=== PATIENT | male | born 1980 | race Caucasian/White ===

== ENCOUNTER 2023-12-01 22:38 | Emergency (ER) | payer SELFPAY ==
[2023-12-01] MEDS ORDERED: ALBUTEROL 2.5 MG/3 ML NEB SOL ONE (23:37)
[2023-12-01] MEDS ORDERED: GUAIFENESIN/DM 5 ML UCUP ONE (23:38)
[2023-12-01] MEDS ORDERED: PROMETHAZINE 25 MG TABLET ONE (23:38)
[2023-12-01] MEDS ORDERED: IPRATROPIUM BROM 0.5MG/2.5ML ONE (23:38)
[2023-12-02] MEDS ORDERED: AZITHROMYCIN 250 MG TAB ONE (00:16)
[2023-12-02 00:21] LABS: Absolute Basophils 0.1 K/uL (0-0.5); Absolute Eosinophils 0.2 K/uL (0-0.5); Absolute Lymphocytes (CBC) 2.9 K/uL (0.7-4.9); Absolute Neutrophil 9.4 K/uL (1.8-8.0); Basophils % 0.6 % (0-1.3); Eosinophils % 1.3 % (0-4.4); Hemoglobin 14.3 g/dL (13.6-17.9); Lymphocytes % 21.7 % (15.3-44.8); MCH 29.6 pg (27.0-35.0); MCV 87.2 fL (80-100); MPV 8.3 fL (7.6-11.3); Monocytes % 7.1 % (3.3-12.3); Neutrophils % 69.3 % (41.7-73.7); Nucleated Red Blood Cells % 0.1 % (0-0); Platelets 311 thou/uL (152-406); RBC Red Blood Cell Count 4.82 M/uL (4.33-5.43); Red Cell Distribution Width 13.2 % (12.1-15.2)
[2023-12-02 00:31] LABS: ALT/SGPT 33 U/L (16-61); Albumin/Globulin Ratio 1.3 (1.1-1.8); Alkaline Phosphatase 61 U/L (45-117); Anion Gap 7.8 mEq/L (5.0-15.0); BUN Blood Urea Nitrogen 17 mg/dL (7-18); Bicarbonate 29 mEq/L (21-32); Bilirubin Total 0.4 mg/dL (0.2-1.0); Globulin 3.1 g/dL (2.3-3.5); Glomerular Filtration Rate 88 ml/min (=/>90); Glucose Level 114 mg/dL (74-106); Potassium 3.8 mEq/L (3.5-5.1); Protein, Total 7.1 g/dL (6.4-8.2); Sodium Level 139 mEq/L (136-145)
[2023-12-02 00:42] LABS: AST/SGOT < 10 U/L (15-37); Bilirubin Direct < 0.2 mg/dL (0-0.2); Bilirubin Indirect, Calculated 0.2 mg/dL (0.2-0.8)
--- NOTE | 2023-12-02 00:58 | ER ---
Nurse's Notes [facility] Name: Lazaro Kaur Age: 43 yrs Sex: Male : 1980 Arrival Date: 12/01/2023 Time: 22:38 Bed 11 Private MD: Diagnosis: Acute bronchitis, unspecified;Acute upper respiratory infection, unspecified Presentation: 11/30 22:43 Chief complaint: Patient states: I can't catch my breath, I have been coughing since jb4 this afternoon. Coronavirus screen: At this time, the client does not indicate any symptoms associated with coronavirus-19. Ebola Screen: No symptoms or risks identified at this time. Initial Sepsis Screen: Does the patient meet any 2 criteria? No. Patient's initial sepsis screen is negative. Does the patient have a suspected source of infection? No. Patient's initial sepsis screen is negative. Risk Assessment: Do you want to hurt yourself or someone else? Patient reports no desire to harm self or others. Onset of symptoms was December 01, 2023. Transition of care: patient was not received from another setting of care. 22:43 Method Of Arrival: Ambulatory jb4 22:43 Acuity: NEGRITA 3 jb4 Triage Assessment: 22:44 General: Appears in no apparent distress. comfortable, Behavior is calm, cooperative. jb4 Pain: Denies pain. EENT: No signs and/or symptoms were reported regarding the EENT system. Neuro: Level of Consciousness is awake, alert, obeys commands, Oriented to person, place, time, situation. Cardiovascular: Patient's skin is warm and dry. Respiratory: Reports shortness of breath with cough cough that is non-productive, dry, persistent Onset: The symptoms/episode began/occurred gradually, the patient has mild shortness of breath. GI: No signs and/or symptoms were reported involving the gastrointestinal system. : No signs and/or symptoms were reported regarding the genitourinary system. Derm: Skin is intact, Skin is pink, warm \T\ dry. Musculoskeletal: Circulation, motion, and sensation intact. Range of motion: intact in all extremities. Historical: - Allergies: 22:44 Sulfa (Sulfonamide Antibiotics); jb4 - PMHx: 22:44 Sleep apnea; jb4 - PSHx: 22:44 sinus surgery; addnoid removal; kidney stents x3; Tonsillectomy; jb4 - Immunization history:: Adult Immunizations up to date. - Infectious Disease History:: Denies. - Social history:: Smoking status: Patient reports the use of cigarette tobacco products, smokes one pack cigarettes per day. - Family history:: not pertinent. Screenin/08 01:16 [facility] ED Fall Risk Assessment (Adult) History of falling in the last 3 months, jb4 including since admission No falls in past 3 months (0 pts) Confusion or Disorientation No (0 pts) Intoxicated or Sedated No (0 pts) Impaired Gait No (0 pts) Mobility Assist Device Used No (0 pt) Altered Elimination No (0 pt) Score/Fall Risk Level 0 - 2 = Low Risk Oriented to surroundings, Maintained a safe environment. Abuse screen: Denies threats or abuse. Nutritional screening: No deficits noted. Tuberculosis screening: No symptoms or risk factors identified. Assessment: 01:16 Reassessment: Patient appears in no apparent distress at this time. Patient and/or jb4 family updated on plan of care and expected duration. Pain level reassessed. Patient is alert, oriented x 3, equal unlabored respirations, skin warm/dry/pink. Patient states feeling better. Patient states symptoms have improved. Vital Signs: 11/30 22:43 BP 110 / 62; Pulse 76; Resp 16; Temp 97.6(O); Pulse Ox 97% on R/A; Weight 92.99 kg (R); jb4 Height 5 ft. 11 in. (R); 12/01 01:16 BP 117 / 63; Pulse 68; Resp 16; Pulse Ox 98% on R/A; jb4 11/30 22:43 Body Mass Index 28.59 (92.99 kg, 180.34 cm) jb4 Froilan Coma Score: 04:42 Eye Response: spontaneous(4). Motor Response: obeys commands(6). Verbal Response: sp4 oriented(5). Total: 15. ED Course: 11/30 22:39 Patient arrived in ED. im 22:41 Alber Cordova MD is Attending Physician. sp4 22:44 Triage completed. jb4 22:44 Arm band placed on right wrist. jb4 23:36 Chest Pa And Lat (2 Views) XRAY In Process Unspecified. EDMS 23:50 Basic Metabolic Panel Sent. jb4 23:50 CBC with Diff Sent. jb4 23:50 LFT's Sent. jb4 23:50 Influenza Screen (a \T\ B) Sent. jb4 12/01 01:16 Patient has correct armband on for positive identification. Bed in low position. Call jb4 light in reach. Side rails up X 1. Provided Education on: discharge instructions.. 01:16 No provider procedures requiring assistance completed. IV discontinued, intact, jb4 bleeding controlled, No redness/swelling at site. Pressure dressing applied. Administered Medications: 11/30 23:49 Drug: Promethazine PO 25 mg PO once Route: PO; jb4 23:49 Drug: Dextromethorphan-Guaifenesin PO Liquid 10 mg-100 mg/5 mL 10 ml PO once Route: PO; jb4 23:50 Drug: Albuterol Inhalation 2.5 mg Inhalation once Route: Inhalation; jb4 23:50 Drug: Ipratropium Inhalation Aerosol 0.5 mg Inhalation once Route: Inhalation; jb4 23:50 Drug: Dextromethorphan-Guaifenesin PO Liquid 10 mg-100 mg/5 mL 10 ml PO once Route: PO; jb4 12/01 00:26 Drug: AZITHromycin PO 500 mg PO once Route: PO; jb4 Medication: 01:16 VIS not applicable for this client. 4 Outcome: 00:57 Discharge ordered by . sp4 01:16 Discharged to home ambulatory, with family, jb4 01:16 Condition: stable 01:16 Discharge instructions given to patient, Instructed on discharge instructions, follow up and referral plans. medication usage, Demonstrated understanding of instructions, follow-up care, medications, Prescriptions given X 4, 01:18 Patient left the ED. jb4 Signatures: Dispatcher [employer] EDSina Bryan, SHAINA MERRITT jb4 Alber Cordova MD MD sp4 Kinjal Galo
--- NOTE | 2023-12-02 00:58 | EDPHYS ---
Physician Documentation [facility] Name: Lazaro Kaur Age: 43 yrs Sex: Male : 1980 Arrival Date: 12/01/2023 Time: 22:38 Bed 11 Private MD: ED Physician Alber Cordova HPI: 11/30 22:41 This 43 yrs old Male presents to ER via Unassigned with complaints of Cough, sp4 Breathing Difficulty. 12/01 04:42 43-year-old male presents with shortness of breath chest discomfort and breathing sp4 difficulty starting at 7 PM yesterday. Patient states he has been coughing dry cough and feeling unwell overall. Patient denied fever or chills. . Historical: - Allergies: 11/30 22:44 Sulfa (Sulfonamide Antibiotics); jb4 - PMHx: 22:44 Sleep apnea; jb4 - PSHx: 22:44 sinus surgery; addnoid removal; kidney stents x3; Tonsillectomy; jb4 - Immunization history:: Adult Immunizations up to date. - Infectious Disease History:: Denies. - Social history:: Smoking status: Patient reports the use of cigarette tobacco products, smokes one pack cigarettes per day. - Family history:: not pertinent. ROS: 12/01 04:42 Constitutional: Negative for fever, chills, and weight loss, positive for shortness of sp4 breath, positive for cough, positive for chest discomfort associated with cough All other systems are negative, Exam: 04:42 Constitutional: This is a well developed, well nourished patient who is awake, alert, sp4 and in no acute distress. Head/Face: Normocephalic, atraumatic. Eyes: Pupils equal round and reactive to light, extra-ocular motions intact. Lids and lashes normal. Conjunctiva and sclera are not injected. Cornea within normal limits. Periorbital areas with no swelling, redness, or edema. ENT: Nares patent. No nasal discharge, no septal abnormalities noted. Tympanic membranes are normal and external auditory canals are clear. Oropharynx with no redness, swelling, or masses, exudates, or evidence of obstruction, uvula midline. Mucous membranes moist. Neck: Trachea midline, no thyromegaly or masses palpated, and no cervical lymphadenopathy. Supple, full range of motion without nuchal rigidity, or vertebral point tenderness. Chest/axilla: Normal chest wall appearance and motion. Nontender with no deformity. No lesions are appreciated. Cardiovascular: Regular rate and rhythm with a normal S1 and S2. No gallops, murmurs, or rubs. Normal PMI, no JVD. No pulse deficits. Respiratory: Lungs have equal breath sounds bilaterally, clear to auscultation and percussion. No rales, rhonchi or wheezes noted. No increased work of breathing, no retractions or nasal flaring. Abdomen/GI: Soft, with normal bowel sounds. No distension or tympany. No guarding or rebound. No evidence of tenderness throughout. Back: No spinal tenderness. No costovertebral tenderness. Skin: Warm, dry with normal turgor. Normal color with no rashes, no lesions, and no evidence of cellulitis. MS/ Extremity: Pulses equal, no cyanosis. Neurovascular intact. Full, normal range of motion. Neuro: Awake and alert, GCS 15, oriented to person, place, time, and situation. Cranial nerves II-XII grossly intact. Motor strength 5/5 in all extremities. Sensory grossly intact. Psych: Awake, alert, with orientation to person, place and time. Behavior, mood, and affect are within normal limits Vital Signs: 11/30 22:43 BP 110 / 62; Pulse 76; Resp 16; Temp 97.6(O); Pulse Ox 97% on R/A; Weight 92.99 kg (R); jb4 Height 5 ft. 11 in. (R); 12/01 01:16 BP 117 / 63; Pulse 68; Resp 16; Pulse Ox 98% on R/A; jb4 11/30 22:43 Body Mass Index 28.59 (92.99 kg, 180.34 cm) jb4 Kendall Coma Score: 04:42 Eye Response: spontaneous(4). Motor Response: obeys commands(6). Verbal Response: sp4 oriented(5). Total: 15. MDM: 11/30 22:41 Patient medically screened. sp4 12/01 00:55 Data reviewed: vital signs, nurses notes, old medical records, lab test result(s), sp4 radiologic studies, plain films. ED course: Stable for discharge home with Zithromax dextromethorphan, and also other 1 called albuterol. 04:42 Differential Diagnosis: Obstructed Airway Bronchitis Influenza Upper Respiratory sp4 Infection Sinusitis. ED course: EXAM DESCRIPTION: Chest Pa And Lat (2 Views) CLINICAL HISTORY: DYSPNEA COMPARISON: None FINDINGS: Cardiac silhouette is within normal limits. EKG leads project over the chest. There is no focal parenchymal or pleural disease. There is no acute osseous process visualized. IMPRESSION: No evidence of acute cardiopulmonary disease. Electronically signed by: Gianfranco Vargas . 11/30 22:41 Order name: Influenza Screen (a \T\ B); Complete Time: 00:49 sp4 11/30 23:11 Order name: Basic Metabolic Panel; Complete Time: 00:49 sp4 11/30 23:11 Order name: CBC with Diff; Complete Time: 00:49 sp4 11/30 23:11 Order name: LFT's; Complete Time: 00:49 sp4 11/30 23:11 Order name: Chest Pa And Lat (2 Views) XRAY sp4 11/30 23:11 Order name: IV Saline Lock; Complete Time: 23:50 sp4 11/30 23:11 Order name: Labs collected and sent; Complete Time: 23:50 sp4 11/30 23:11 Order name: O2 Per Protocol; Complete Time: 23:50 sp4 11/30 23:11 Order name: O2 Sat Monitoring; Complete Time: 23:50 sp4 Administered Medications: 11/30 23:49 Drug: Promethazine PO 25 mg PO once Route: PO; jb4 23:49 Drug: Dextromethorphan-Guaifenesin PO Liquid 10 mg-100 mg/5 mL 10 ml PO once Route: PO; jb4 23:50 Drug: Albuterol Inhalation 2.5 mg Inhalation once Route: Inhalation; jb4 23:50 Drug: Ipratropium Inhalation Aerosol 0.5 mg Inhalation once Route: Inhalation; jb4 23:50 Drug: Dextromethorphan-Guaifenesin PO Liquid 10 mg-100 mg/5 mL 10 ml PO once Route: PO; jb4 12/01 00:26 Drug: AZITHromycin PO 500 mg PO once Route: PO; jb4 Disposition Summary: 12/02/23 00:57 Discharge Ordered Notes: Location: Home sp4 Problem: new sp4 Symptoms: have improved sp4 Condition: Stable sp4 Diagnosis - Acute bronchitis, unspecified sp4 - Acute upper respiratory infection, unspecified sp4 Followup: sp4 - With: Private Physician - When: 7 - 10 days - Reason: Recheck today's complaints Discharge Instructions: - Discharge Summary Sheet sp4 - Acute Bronchitis, Adult sp4 Forms: - Patient Portal Instructions sp4 Prescriptions: - Ventolin HFA 90 mcg/actuation Inhalation HFA Aerosol Inhaler - inhale 2 puff INHALATION route every 4 hours Dispense 1 Inhaler with Spacer, sp4 Use 2 puffs every 4 hours as needed for cough and dyspnea; 1 unit; Refills: 0, Product Selection Permitted - dextromethorphan-guaifenesin 20-400 mg Oral tablet - take 1 tablet ORAL route every 6 hours PRN cough; 40 tablet; Refills: 0, sp4 Product Selection Permitted - Ibuprofen 800 mg Oral Tablet - take 1 tablet ORAL route every 8 hours As needed take with food; 30 tablet; sp4 Refills: 0, Product Selection Permitted - Zithromax Z-Ranulfo 250 mg Oral Tablet - take 1 tablet ORAL route as directed for 5 days Day 1 - take two (2) tablets sp4 one time. Day 2, 3, 4 , 5 take one (1) tablet once daily.; 6 tablet; Refills: 0, Product Selection Permitted Signatures: Dispatcher [employer] Sina Vigil RN RN jb4 Alber Cordova MD MD sp4
[2023-12-02 01:55] VITALS: BP 117/63; TEMP 97.6; O2SAT 98
--- NOTE | 2023-12-02 12:48 | RAD REPORT ---
EXAM DESCRIPTION: RAD - Chest Pa And Lat (2 Views) - 12/01/2023 11:34 pm CLINICAL HISTORY: DYSPNEA COMPARISON: None FINDINGS: Cardiac silhouette is within normal limits. EKG leads project over the chest. There is no focal parenchymal or pleural disease. There is no acute osseous process visualized. IMPRESSION: No evidence of acute cardiopulmonary disease. Electronically signed by: Gianfranco Vargas MD 12/01/2023 11:50 PM CDT Due to temporary technical issues with the PACS/Fluency reporting system, reports are being signed by the in house radiologist without review as a courtesy to ensure prompt reporting. The interpreting r adiologist is fully responsible for the content of the report.
== END 2023-12-02 01:18 | disposition home or self-care (01) ==
LOC: ER 22:38
DX: J20.9 Acute bronchitis, unspecified (principal); J06.9 Acute upper respiratory infection, unspecified; F17.210 Nicotine dependence, cigarettes, uncomplicated; Z88.2 Allergy status to sulfonamides
CPT/HCPCS: 36415; 71046; 80048; 80076; 85025; 87804; J7613; J7644; Q0169